=== PATIENT | female | born 1955 | race Caucasian/White ===

== ENCOUNTER 2019-01-09 18:50 | Emergency (ER) | payer MEDICARE, OTHER ==
[~2019-01-09] VITALS: Ht 157.5 cm; Wt 68.0 kg
[2019-01-09] MEDS ORDERED: ZOLOFT50 MG PO (19:06)
[2019-01-09] MEDS ORDERED: LEVO-T100 MCG PO (19:06)
[2019-01-09] MEDS ORDERED: XANAX0.25 MG PO (19:07)
[2019-01-09] MEDS ORDERED: PRINIVIL10 MG PO (19:07)
[2019-01-09] MEDS ORDERED: NORCO 5-325 TA1 EACH PO (20:41)
== END 2019-01-09 21:45 | disposition home or self-care (01) ==
LOC: ED 18:50
PROC: 0HQ1XZZ Repair Face Skin, External Approach (ICD-10-PCS; principal; 2019-01-09)
DX: S02.2XXA Fracture of nasal bones, initial encounter for closed fracture (principal); S01.81XA Laceration without foreign body of other part of head, initial encounter; I10 Essential (primary) hypertension; Z79.899 Other long term (current) drug therapy; W01.198A Fall on same level from slipping, tripping and stumbling with subsequent striking against other object, initial encounter
CPT/HCPCS: 12011; 70450; 70486; 72125; 99283-25